=== PATIENT | female | born 1950 | race Caucasian/White ===

== ENCOUNTER → 2018-03-20 | Outpatient (CLI) | payer OTHER ==
[~2018-03-20] MED LIST: ACET325 PO; FAMO20 PO; SULTRIDS PO
[2018-03-20 12:27] LABS: Adenovirus F 40/41 Not Detected (NOT DETECT); Astrovirus Not Detected (NOT DETECT); Campylobacter Sp Not Detected (NOT DETECT); Cryptosporidium Not Detected (NOT DETECT); Cyclospora Cayetanensis Not Detected (NOT DETECT); E. Coli O157 Not Detected (NOT DETECT); Entamoeba Histolytica Not Detected (NOT DETECT); Enteroaggregative E. coli-EAEC Not Detected (NOT DETECT); Enteropathogenic E. coli-EPEC Not Detected (NOT DETECT); Enterotoxigenic E. coli-ETEC Not Detected (NOT DETECT); Giardia Lamblia Not Detected (NOT DETECT); Norovirus GI/GII Not Detected (NOT DETECT); Plesiomonas Shigelloides Not Detected (NOT DETECT); Rotavirus A Not Detected (NOT DETECT); Salmonella Sp Not Detected (NOT DETECT); Sapovirus Not Detected (NOT DETECT); Shiga Toxin-prod E. coli-STEC Not Detected (NOT DETECT); Shigella/Enteroin E. coli-EIEC Not Detected (NOT DETECT); Vibrio Cholerae Not Detected (NOT DETECT); Vibrio Sp Not Detected (NOT DETECT); Yersinia Enterocolitica Not Detected (NOT DETECT)
== END ==
LOC: LAB EV 12:22
PROVIDERS: Student in an Organized Health Care Education/Training Program
DX: R19.7 Diarrhea, unspecified (principal)
CPT/HCPCS: 87507

== ENCOUNTER → 2018-09-11 | Outpatient (CLI) | payer OTHER | END | disposition home or self-care (01) | LOC: LAB EV 16:47 → LAB SHORT 16:47 | DX: L02.211 Cutaneous abscess of abdominal wall (principal) | CPT/HCPCS: 87070; 87075; 87077; 87186; 87205 ==

== ENCOUNTER 2020-03-22 12:17 | Inpatient (IN) | payer OTHER ==
[~2020-03-22] VITALS: Ht 165.1 cm; Wt 104.5 kg
[2020-03-22 14:03] LABS: Source, Urine Clean Catch
[2020-03-22 14:06] LABS: Bilirubin, Urine Neg (Neg); Blood, Urine 5+ (Neg); Glucose Qualitative, Urine 2+ (Neg); Ketones, Urine Neg (Neg); Leukocyte Esterase, Urine 3+ (Neg); Nitrite, Urine Neg (Neg); Protein, Urine 1+ (Neg); Urobilinogen, Urine NORM (Normal)
[2020-03-22 14:12] LABS: Appearance, Urine Hazy (Clear); Color, Urine Yellow (P-Yellow)
[2020-03-22 14:13] LABS: Bacteria Many /hpf; Red Blood Cells, Urine TNTC /hpf (0-2); Squamous Epithelial Cells Mod /hpf (Few); White Blood Cells, Urine TNTC /hpf (0-5)
[2020-03-22 14:14] LABS: Renal Epithelial Few /hpf (0-Rare); Transitional Epithelial Cells Few /hpf (0-Rare)
[2020-03-22] MEDS ORDERED: TRULICITY1.5 MG/0.1 SC (14:26)
[2020-03-22] MEDS ORDERED: TOUJEO MAX300 UNIT/2 SC (14:27)
[2020-03-22] MEDS ORDERED: LISI20 PO (14:27)
[2020-03-22] MEDS ORDERED: HYDROCHLOROTH12.5 MG PO (14:27)
[2020-03-22] MEDS ORDERED: GABA300 PO (14:27)
[2020-03-22] MEDS ORDERED: Mirapex0.25 MG PO (14:27)
[2020-03-22] MEDS ORDERED: ATOR40TA PO (14:28)
[2020-03-22] MEDS ORDERED: METO25ER PO (14:28)
[2020-03-22] MEDS ORDERED: TRAM50 PO (14:28)
[2020-03-22] MEDS ORDERED: PANT40 PO (14:28)
[2020-03-22] MEDS ORDERED: GLIP5 PO (14:28)
--- NOTE | 2020-03-22 19:47 | NUR ---
SHIFT SUMMARY: PATIENT ADMIT FROM ED THIS SHIFT. PT A&O; CALM AND COOEPRATIVE WITH CARE. LACTIC 3.7-CH; FLUIDS RUNNING. HYPOTENSION RESOLVING; TEMP COMING DOWN; IV ABX IN ED. REPORT GIVEN TO ONCOMING RN.
--- NOTE | 2020-03-22 22:05 | NUR ---
CRITICAL LAB/INCREASED TEMP *LATE ENTRY* AROUND 1730 I WAS NOTIFIED PT HAD A CRITICAL LA @3.2 WHICH HAD TRENDED DOWN FROM 3.[address] FUENTES ORDERED REPEAT LAB TO BE DRAWN, I WILL MONITOR. TEMP 102.8, GAVE TYLENOL & TEMP DECREASED TO 100.6. PT DENIES CHILLS OR FEELING HOT, TURNED TEMP DOWN IN ROOM & REMOVED BLANKETS. WILL MONITOR PTS VITALS. CURRENTLY RECIEVING NS @150ML/HR.
[2020-03-22] MEDS ORDERED: FISH OIL 1,2001 EAC1 PO (22:27)
[2020-03-22] MEDS ORDERED: ASPIR 8181 M1 PO (22:28)
[2020-03-22] MEDS ORDERED: VITAMIN D31000 UNI1 PO (22:30)
[2020-03-22] MEDS ORDERED: MELATONIN 5 MG1 EACH PO (22:32)
--- NOTE | 2020-03-23 04:33 | NUR ---
BLOOD CULTURE AT 0255 I WAS NOTIFIED PT HAD GRAM +BACILLI IN BOTH BLOOD CULTURES. PT IS RECIEVING ROCEPHIN. ASKED PHARMACY IF PT IS COVERED W/THIS, THEY STATED POSSIBLY. NOTIFIED DR FARMER & NO NEW ORDERS WERE GIVEN. [facility] PT.
[2020-03-23 05:09] LABS: BASOPHILS ABSOLUTE AUTO 0.08 K/mm3 (0.00-0.23); BASOPHILS PERCENT AUTO 0 % (0-2); EOSINOPHILS ABSOLUTE AUTO 0.02 K/mm3 (0.00-0.68); EOSINOPHILS PERCENT AUTO 0 % (0-6); Hematocrit 34.5 % (33.0-51.0); Hemoglobin 10.8 g/dL (11.5-16.0); IMMATURE GRAN ABSOLUTE AUTO 0.53 K/mm3 (0.00-0.10); IMMATURE GRAN PERCENT AUTO 2 % (0-1); LYMPHOCYTES ABSOLUTE AUTO 2.68 K/mm3 (0.84-5.20); LYMPHOCYTES PERCENT AUTO 9 % (21-46); MONOCYTES ABSOLUTE AUTO 0.99 K/mm3 (0.16-1.47); MONOCYTES PERCENT AUTO 3 % (4-13); Mean Corpuscular HGB 29.6 pg (26.0-34.0); Mean Corpuscular HGB Conc 31.3 g/dL (31.5-36.5); NEUTROPHILS ABSOLUTE AUTO 26.69 K/mm3 (1.96-9.15); NEUTROPHILS PERCENT AUTO 86 % (41-73); Platelet Count 171 K/mm3 (150-400); RDW Coefficient Variation 13.2 % (11.7-14.2); RDW Standard Deviation 45.6 fL (35.1-46.3); Red Blood Cell Count 3.65 M/mm3 (3.80-5.20); White Blood Cell Count 30.99 K/mm3 (4.00-11.30)
[2020-03-23 05:12] LABS: Mean Corpuscular Volume 95 fL (80-100)
[2020-03-23 05:37] LABS: Albumin, Blood 2.7 g/dL (3.4-5.0); Albumin/Globulin Ratio 0.8 (0.8-1.8); Bilirubin, Total 0.4 mg/dL (0.1-1.0); Calcium, Blood 7.9 mg/dL (8.5-10.1); Creatinine, Blood 2.69 mg/dL (0.40-1.00); Globulin, Blood 3.6 g/dL (2.2-4.0); Phosphorus, Blood 2.2 mg/dL (2.5-4.9); Potassium, Blood 4.4 mmol/L (3.5-5.5); Total Protein, Blood 6.3 g/dL (6.4-8.2)
[2020-03-23 05:59] LABS: Magnesium, Blood 1.1 mg/dL (1.6-2.4)
--- NOTE | 2020-03-23 06:25 | NUR ---
SHIFT SUMMARY AOX4. HAD 102.8 TEMP LAST NIGHT, GAVE 1000MG TYLENOL PER ORDERS, TEMP DECREASED TO 100.6 & NOW PT IS AFEBRILE. REST OF VSS. TELE NSR c 1ST DEGREE HB @89. PT WAS ON 3L 02 @BEGINNING OF SHIFT, ABLE TO TITRATE DOWN TO 1L- PT STATES SHE'S NORMALLY ON RA. E/U RESPIRATIONS. SPO2 >90%. 7-9/10 L FLANK PAIN, MEDICATED 1X W/50MG TRAMADOL, PT REPORTED NO RELIEF-GAVE HEATING PAD THIS AM AFTER NO FURTHER FEVER. LACTIC ACID CRITICAL @2.5, PT RECIEVING NS @100ML/HR. NOTIFIED @0558 MAGNESIUM IS CRITICAL @1.1, MARLENY ORDERED 2GM IV MAG. +BLOOD CULTURES IN BOTH BLOOD SAMPLES, GRAM - BACILLI, NOTIFIED DR LEMOS & NO NEW ORDERS PLACED. PT UP 1 ASSIST TO BSC. WCTM PT. CALL LIGHT IN REACH.
--- NOTE | 2020-03-23 19:40 | NUR ---
SHIFT SUMMARY: PT A&O; ANXIOUS;COOPERATIVE WITH CARE. MEDICATED FOR R FLANK PAIN PER EMAR. RED-TINGED URINE; AWAITING STENT PLACEMENT (DR ALVAREZ). IV ABX & SEPSIS FLUIDS CONTINUING. REPORT GIVEN TO ONCOMING RN.
--- NOTE | 2020-03-23 22:48 | NUR ---
PHYSICIAN COMMUNICATION *LATE ENTRY* AT SHIFT CHANGE AROUND 1900 DR ALVAREZ INFOMRED ME THIS PT WOULD BE GOING TO CARBURETOR MECHANIC FOR NEPHROSTOMY PLACEMENT. AT 1925 CARBURETOR MECHANIC CAME TO FLOOR & TOOK PT FOR PROCEDURE.
--- NOTE | 2020-03-23 22:52 | NUR ---
POST PROCEDURE *LATE ENTRY* PT RETURNED FROM BOOTH MANAGER AROUND 2029. NEPHROSTOMY PLACED L LOWER BACK. DRESSING IS C/D/I, NO OUTPUT @THIS TIME-WILL MONITOR & PERFORM POST OP VITALS.
--- NOTE | 2020-03-23 22:56 | NUR ---
HEMATURIA PT HAS VOIDED DARK BLOODY RED URINE W/MULTIPLE CLOTS 2X, EQUALING 500ML, SINCE COMING BACK FROM NEPHROSTOMY PLACEMENT. VITALS STABLE-MILD TEMP, MEDICATED W/TYLENOL. WCTM.
--- NOTE | 2020-03-24 05:26 | NUR ---
SHIFT SUMMARY AOX4. HAD NEPHROSTOMY PLACED LAST NIGHT L LOWER BACK, ONLY SMALL AMOUNT BRYSON RED BLOODY DRAINAGE IN BAG. HAS VOIDED DARK RED/BLOODY URINE 4X SINCE NEPHROSTOMY PLACED. THE 1ST 2 TIMES PT VOIDED SHE HAD MANY SMALL CLOTS, NONE NOTICED W/LAST BLOODY URINATION. POST OP VITALS BEING DONE, HAD 100.3 TEMP GAVE TYLENOL, TEMP DECREASED TO 99.4. THIS AM PT IS AFEBRILE, REPORTING CHILLS & SHAKING. TELE [facility] 1ST DEGREE HB @105. CBG @ WAS 221, PROVIDED COVERAGE PER ORDERS. REPORTS 10 PAIN c HEADACHE & L FLANK PAIN, MEDICATED W/TYLENOL. CALL LIGHT IN REACH. WCTM.
[2020-03-24 05:56] LABS: BASOPHILS ABSOLUTE AUTO 0.09 K/mm3 (0.00-0.23); BASOPHILS PERCENT AUTO 0 % (0-2); EOSINOPHILS ABSOLUTE AUTO 0.14 K/mm3 (0.00-0.68); EOSINOPHILS PERCENT AUTO 1 % (0-6); Hematocrit 34.6 % (33.0-51.0); Hemoglobin 10.9 g/dL (11.5-16.0); IMMATURE GRAN ABSOLUTE AUTO 0.39 K/mm3 (0.00-0.10); IMMATURE GRAN PERCENT AUTO 2 % (0-1); LYMPHOCYTES ABSOLUTE AUTO 2.51 K/mm3 (0.84-5.20); LYMPHOCYTES PERCENT AUTO 10 % (21-46); MONOCYTES ABSOLUTE AUTO 1.11 K/mm3 (0.16-1.47); MONOCYTES PERCENT AUTO 5 % (4-13); Mean Corpuscular HGB Conc 31.5 g/dL (31.5-36.5); Mean Corpuscular Volume 92 fL (80-100); Mean Platelet Volume 12.4 fL (9.1-12.4); NEUTROPHILS ABSOLUTE AUTO 20.52 K/mm3 (1.96-9.15); NEUTROPHILS PERCENT AUTO 83 % (41-73); Platelet Count 143 K/mm3 (150-400); RDW Coefficient Variation 13.5 % (11.7-14.2); RDW Standard Deviation 45.7 fL (35.1-46.3); Red Blood Cell Count 3.76 M/mm3 (3.80-5.20); White Blood Cell Count 24.76 K/mm3 (4.00-11.30)
[2020-03-24 06:04] LABS: Albumin, Blood 2.5 g/dL (3.4-5.0); Anion Gap 7 mmol/L (6-16); Blood Urea Nitrogen 30 mg/dL (8-24); Bun/Creatinine Ratio 11.7 (12.0-20.0); CO2, Blood 22 mmol/L (21-32); Calcium, Blood 7.8 mg/dL (8.5-10.1); Chloride, Blood 110 mmol/L (98-108); Creatinine, Blood 2.57 mg/dL (0.40-1.00); Glomerular Filtration Rate 20 (60-); Glucose, Blood 189 mg/dL (70-99); Phosphorus, Blood 1.3 mg/dL (2.5-4.9); Potassium, Blood 4.3 mmol/L (3.5-5.5); Sodium, Blood 139 mmol/L (136-145)
[2020-03-24] MEDS ORDERED: FERSU300 PO (10:20)
[2020-03-24] MEDS ORDERED: LISINOPRIL-HCT1 EACH PO (10:21)
[2020-03-24] MEDS ORDERED: TOUJEO SOL300 UNIT/2 SC (10:22)
--- NOTE | 2020-03-24 19:39 | NUR ---
SHIFT SUMMARY PT URINE AND NEPHROSTOMY URINE IMPROVING IN COLOR THE DAY PROGRESSED. PT REPORTS NO PAIN UNLESS SHE BUMPS WHERE TUBE IS INSERTED. INDEPENDENT TO BSC AND CHAIR AND THEN BACK TO BED AGAIN.
[2020-03-25 05:21] LABS: Hematocrit 32.6 % (33.0-51.0); Hemoglobin 10.6 g/dL (11.5-16.0)
[2020-03-25 05:45] LABS: Albumin, Blood 2.5 g/dL (3.4-5.0); Anion Gap 6 mmol/L (6-16); Blood Urea Nitrogen 28 mg/dL (8-24); Bun/Creatinine Ratio 12.3 (12.0-20.0); CO2, Blood 24 mmol/L (21-32); Calcium, Blood 8.2 mg/dL (8.5-10.1); Chloride, Blood 109 mmol/L (98-108); Creatinine, Blood 2.28 mg/dL (0.40-1.00); Glomerular Filtration Rate 22 (60-); Glucose, Blood 155 mg/dL (70-99); Magnesium, Blood 1.6 mg/dL (1.6-2.4); Phosphorus, Blood 2.4 mg/dL (2.5-4.9); Potassium, Blood 4.1 mmol/L (3.5-5.5); Sodium, Blood 139 mmol/L (136-145)
--- NOTE | 2020-03-25 07:49 | NUR ---
SHIFT SUMMARY AOX4. VSS. TELE NSR @77. DENIES N/V OR DYSPNEA. REPORTED MILD HEADACHE, GAVE TYLENOL & PT STATED RELIEF. PT DENIED ANY FLANK PAIN LAST NIGHT. NEPHROSTOMY ON L LOWER BACK IS DRAINING CLEAR LIGHT CRANBERRY COLOR DRAINAGE & WHEN PT VOIDED IT WAS CLEAR YELLOW TONIGHT. THIS AM DR ATKINS DC'D FLUIDS & ORDERED IV 20MG IV LASIX OT. CALL LIGHT IN REACH.
--- NOTE | 2020-03-25 18:38 | NUR ---
SHIFT SUMMARY PT INDEPENDENT IN ROOM. URINE HAS CLEARED UP IN NEPHROSTOMY BAG AND WHAT IS URINATED THE DAY HAS PROGRESSED. IN CHAIR MOST OF DAY. DID NAP FOR A SHORT TIME THIS AFTERNOON. NO FEVERS.
--- NOTE | 2020-03-26 03:27 | NUR ---
SHIFT SUMMARY: PT IS ALERT AND ORIENTED. PT IS CALM AND COOPERATIVE WITH CARE. PT CALLS APPROPRIATELY. PT DENIES NAUSEA, VOMITING, AND SOB. PT IS INDPENDENT TO THE BSC. L. NEPHROSTOMY PATENT AND DRAINING DARK TEA COLORED URINE, 150 ML OUTPUT. PT SLEPT MUCH OF THE NIGHT WHEN NOT DISTURBED. NO ACUTE CHANGES OR COMPLICATIONS. WILL REPORT TO DAY NURSE.
[2020-03-26 08:39] LABS: BASOPHILS ABSOLUTE AUTO 0.05 K/mm3 (0.00-0.23); BASOPHILS PERCENT AUTO 1 % (0-2); EOSINOPHILS ABSOLUTE AUTO 0.27 K/mm3 (0.00-0.68); EOSINOPHILS PERCENT AUTO 3 % (0-6); Hematocrit 32.1 % (33.0-51.0); Hemoglobin 10.4 g/dL (11.5-16.0); IMMATURE GRAN ABSOLUTE AUTO 0.07 K/mm3 (0.00-0.10); IMMATURE GRAN PERCENT AUTO 1 % (0-1); LYMPHOCYTES ABSOLUTE AUTO 1.73 K/mm3 (0.84-5.20); LYMPHOCYTES PERCENT AUTO 17 % (21-46); MONOCYTES ABSOLUTE AUTO 1.21 K/mm3 (0.16-1.47); MONOCYTES PERCENT AUTO 12 % (4-13); Mean Corpuscular HGB 29.2 pg (26.0-34.0); Mean Corpuscular HGB Conc 32.4 g/dL (31.5-36.5); Mean Corpuscular Volume 90 fL (80-100); Mean Platelet Volume 12.4 fL (9.1-12.4); NEUTROPHILS ABSOLUTE AUTO 6.95 K/mm3 (1.96-9.15); NEUTROPHILS PERCENT AUTO 68 % (41-73); Platelet Count 161 K/mm3 (150-400); RDW Coefficient Variation 13.5 % (11.7-14.2); Red Blood Cell Count 3.56 M/mm3 (3.80-5.20); White Blood Cell Count 10.28 K/mm3 (4.00-11.30)
[2020-03-26 09:01] LABS: Albumin, Blood 2.5 g/dL (3.4-5.0); Anion Gap 7 mmol/L (6-16); Blood Urea Nitrogen 28 mg/dL (8-24); Bun/Creatinine Ratio 14.4 (12.0-20.0); CO2, Blood 26 mmol/L (21-32); Chloride, Blood 104 mmol/L (98-108); Creatinine, Blood 1.94 mg/dL (0.40-1.00); Glomerular Filtration Rate 27 (60-); Glucose, Blood 123 mg/dL (70-99); Phosphorus, Blood 2.9 mg/dL (2.5-4.9); Potassium, Blood 3.7 mmol/L (3.5-5.5); Sodium, Blood 137 mmol/L (136-145)
--- NOTE | 2020-03-26 16:58 | NUR ---
SHIFT SUMMARY PATIENT IS PLEASANT, ALERT AND ORIENTED. NO ACUTE CONCERNS. SHE AHS BEEN INDEPENDENT IN THE ROOM. SHE DID HAVE A SHOWER TODAY. REQUIRES NO ACUTE CONCERNS.
[2020-03-27 05:30] LABS: BASOPHILS ABSOLUTE AUTO 0.06 K/mm3 (0.00-0.23); BASOPHILS PERCENT AUTO 1 % (0-2); EOSINOPHILS ABSOLUTE AUTO 0.22 K/mm3 (0.00-0.68); EOSINOPHILS PERCENT AUTO 2 % (0-6); Hematocrit 32.3 % (33.0-51.0); Hemoglobin 10.4 g/dL (11.5-16.0); IMMATURE GRAN ABSOLUTE AUTO 0.09 K/mm3 (0.00-0.10); IMMATURE GRAN PERCENT AUTO 1 % (0-1); LYMPHOCYTES ABSOLUTE AUTO 2.47 K/mm3 (0.84-5.20); LYMPHOCYTES PERCENT AUTO 20 % (21-46); MONOCYTES ABSOLUTE AUTO 1.64 K/mm3 (0.16-1.47); MONOCYTES PERCENT AUTO 13 % (4-13); Mean Corpuscular HGB 29.1 pg (26.0-34.0); Mean Corpuscular HGB Conc 32.2 g/dL (31.5-36.5); Mean Corpuscular Volume 91 fL (80-100); Mean Platelet Volume 12.3 fL (9.1-12.4); NEUTROPHILS ABSOLUTE AUTO 7.83 K/mm3 (1.96-9.15); NEUTROPHILS PERCENT AUTO 64 % (41-73); Platelet Count 186 K/mm3 (150-400); RDW Coefficient Variation 13.5 % (11.7-14.2); Red Blood Cell Count 3.57 M/mm3 (3.80-5.20); White Blood Cell Count 12.31 K/mm3 (4.00-11.30)
[2020-03-27 06:00] LABS: Albumin, Blood 2.5 g/dL (3.4-5.0); Anion Gap 7 mmol/L (6-16); Blood Urea Nitrogen 33 mg/dL (8-24); Bun/Creatinine Ratio 16.5 (12.0-20.0); CO2, Blood 26 mmol/L (21-32); Calcium, Blood 8.9 mg/dL (8.5-10.1); Chloride, Blood 105 mmol/L (98-108); Glomerular Filtration Rate 26 (60-); Glucose, Blood 176 mg/dL (70-99); Magnesium, Blood 1.4 mg/dL (1.6-2.4); Phosphorus, Blood 3.1 mg/dL (2.5-4.9); Potassium, Blood 3.9 mmol/L (3.5-5.5); Sodium, Blood 138 mmol/L (136-145)
--- NOTE | 2020-03-27 06:12 | NUR ---
HEAD TELLER SUMMARY APPEARED TO SLEEP WELL MOST OF THE NIGHT. PLEASANT AND COOPERATIVE WITH CARE. USES CALL LIGHT APPROPRIATELY. NO SIGNS OF ACUTE DISTRESS. DENIES PAIN OR DISCOMFORT AT THIS TIME. BED IN LOWEST POSITON WITH CALL LIGHT IN REACH. WILL CONTINUE TO MONTIOR AND REPORT TO ONCOMING RN.
--- NOTE | 2020-03-27 08:08 | NUR ---
SPOKE WITH DR. ATKINS ABOUT PATIENT'S IV STATUS. SPOKE WITH DR. LLANOS ABOUT PATIENT'S IV STATUS. THE PATIENT IS NOT ABLE TO GET ANOTHER IV. DR. ATKINS ORDERED SLOW MAG. WE DO NOT HAVE SLOW MAG ANYMORE AVAILABLE.
--- NOTE | 2020-03-27 18:16 | NUR ---
shift summary patient is pleasant, alert and oriented, independent in the room. iv access is finicky and we have discontinued the iv medications at this time. she has been pleasant, prefers to have her rest. she is a potential for discahrge tomorrow if her wbc trends down.
[2020-03-28 05:44] LABS: BASOPHILS ABSOLUTE AUTO 0.09 K/mm3 (0.00-0.23); BASOPHILS PERCENT AUTO 1 % (0-2); EOSINOPHILS ABSOLUTE AUTO 0.35 K/mm3 (0.00-0.68); EOSINOPHILS PERCENT AUTO 2 % (0-6); Hematocrit 39.3 % (33.0-51.0); IMMATURE GRAN PERCENT AUTO 1 % (0-1); LYMPHOCYTES ABSOLUTE AUTO 4.49 K/mm3 (0.84-5.20); LYMPHOCYTES PERCENT AUTO 27 % (21-46); MONOCYTES ABSOLUTE AUTO 1.82 K/mm3 (0.16-1.47); MONOCYTES PERCENT AUTO 11 % (4-13); Mean Corpuscular HGB Conc 33.1 g/dL (31.5-36.5); Mean Corpuscular Volume 88 fL (80-100); NEUTROPHILS ABSOLUTE AUTO 9.84 K/mm3 (1.96-9.15); NEUTROPHILS PERCENT AUTO 59 % (41-73); RDW Coefficient Variation 13.4 % (11.7-14.2); RDW Standard Deviation 43.7 fL (35.1-46.3); Red Blood Cell Count 4.48 M/mm3 (3.80-5.20); White Blood Cell Count 16.79 K/mm3 (4.00-11.30)
[2020-03-28 05:47] LABS: Mean Platelet Volume 11.7 fL (9.1-12.4); Platelet Count 236 K/mm3 (150-400)
[2020-03-28 06:05] LABS: Anion Gap 11 mmol/L (6-16); Blood Urea Nitrogen 32 mg/dL (8-24); Bun/Creatinine Ratio 17.3 (12.0-20.0); CO2, Blood 22 mmol/L (21-32); Calcium, Blood 9.4 mg/dL (8.5-10.1); Chloride, Blood 105 mmol/L (98-108); Creatinine, Blood 1.85 mg/dL (0.40-1.00); Glomerular Filtration Rate 29 (60-); Glucose, Blood 152 mg/dL (70-99); Magnesium, Blood 1.6 mg/dL (1.6-2.4); Phosphorus, Blood 3.5 mg/dL (2.5-4.9); Potassium, Blood 4.3 mmol/L (3.5-5.5); Sodium, Blood 138 mmol/L (136-145)
--- NOTE | 2020-03-28 06:19 | NUR ---
FIRST COAT OPERATOR SUMMARY PT A/O X4. INDEPENDENT IN ROOM. MEDICATED FOR PAIN TWICE THIS SHIFT. TEMP ELEVATED THIS AM AT 99.8 F VIA TEMPORAL. I RE-CHECKED AGAIN WITH ORAL WHICH WAS 98.5 F. SHE WAS MEDICATED WITH TYLENOL THIS MORNING FOR HEADACHE. PT FEELS COLD BUT SHE STATES SHE'S BEEN FEELING CHILLY EVER SINCE BEING THE THE HOSPITAL. BLANKET PROVIDED. WBC ARE MORE ELEVATED. PT SLEPT WELL. L FLANK SITE LOOKS C.D.I.
--- NOTE | 2020-03-28 11:18 | NUR ---
PT DOES NOT WANT TO SHOWER. OFFERED TO SET STUFF UP FOR HER TO GIVE HERSELF A BEDBATH, PT REFUSED THIS WELL.
--- NOTE | 2020-03-28 18:58 | NUR ---
SHIFT SUMMARY NO ACUTE CONCERNS AT THIS TIME. DENIES ANY CHEST PAIN, SHORTNESS OF BREATH. NO PAIN AT THIS TIME. PLEASANT ALERT AND ORIENTED. INDEPENDENT IN THE ROOM.
--- NOTE | 2020-03-29 04:11 | NUR ---
PLANNER INTERN SUMMARY PT A/O X4. INDEPENDENT ROOM. MEDICATED FOR PAIN ONCE TONIGHT. DENIES NAUSEA, DIZZINIESS. SLEPT WELL TONIGHT. VSS. L FLANK NEPHROSTOMY SITE APPEARS C.D.I. NO ACUTE CHANGES.
[2020-03-29 05:18] LABS: BASOPHILS ABSOLUTE AUTO 0.07 K/mm3 (0.00-0.23); BASOPHILS PERCENT AUTO 1 % (0-2); EOSINOPHILS ABSOLUTE AUTO 0.51 K/mm3 (0.00-0.68); EOSINOPHILS PERCENT AUTO 3 % (0-6); Hematocrit 34.5 % (33.0-51.0); Hemoglobin 10.8 g/dL (11.5-16.0); IMMATURE GRAN ABSOLUTE AUTO 0.22 K/mm3 (0.00-0.10); IMMATURE GRAN PERCENT AUTO 1 % (0-1); LYMPHOCYTES ABSOLUTE AUTO 3.01 K/mm3 (0.84-5.20); LYMPHOCYTES PERCENT AUTO 20 % (21-46); MONOCYTES ABSOLUTE AUTO 1.47 K/mm3 (0.16-1.47); MONOCYTES PERCENT AUTO 10 % (4-13); Mean Corpuscular HGB 29.1 pg (26.0-34.0); Mean Corpuscular HGB Conc 31.3 g/dL (31.5-36.5); Mean Platelet Volume 11.5 fL (9.1-12.4); NEUTROPHILS ABSOLUTE AUTO 9.92 K/mm3 (1.96-9.15); NEUTROPHILS PERCENT AUTO 65 % (41-73); Platelet Count 272 K/mm3 (150-400); RDW Coefficient Variation 13.5 % (11.7-14.2); RDW Standard Deviation 45.9 fL (35.1-46.3); Red Blood Cell Count 3.71 M/mm3 (3.80-5.20)
[2020-03-29 05:19] LABS: Mean Corpuscular Volume 93 fL (80-100)
[2020-03-29 05:40] LABS: Albumin, Blood 2.7 g/dL (3.4-5.0); Anion Gap 8 mmol/L (6-16); Blood Urea Nitrogen 30 mg/dL (8-24); Bun/Creatinine Ratio 16.6 (12.0-20.0); CO2, Blood 27 mmol/L (21-32); Calcium, Blood 9.5 mg/dL (8.5-10.1); Chloride, Blood 105 mmol/L (98-108); Creatinine, Blood 1.81 mg/dL (0.40-1.00); Glomerular Filtration Rate 29 (60-); Glucose, Blood 151 mg/dL (70-99); Magnesium, Blood 1.6 mg/dL (1.6-2.4); Phosphorus, Blood 3.5 mg/dL (2.5-4.9); Potassium, Blood 3.9 mmol/L (3.5-5.5); Sodium, Blood 140 mmol/L (136-145)
[2020-03-29] MEDS ORDERED: ACET325 PO (15:51)
[2020-03-29] MEDS ORDERED: CIPR500 PO (15:52)
[2020-03-29] MEDS ORDERED: VISBIOME PROBIOTIC PO (15:53)
--- NOTE | 2020-03-29 16:43 | NUR ---
PATIENT D/C'D TO HOME. RX MEDICATIONS FAXED TO [facility]. DC INSTRUCTIONS AND EDUCATION DISCUSSED WITH PATIENT AND COPY PROVIDED. PATIENT DENIES ANY FURTHER QUESTIONS OR CONCERNS.
== END 2020-03-29 16:38 | disposition home or self-care (01) | DRG 872 ==
LOC: ER 12:17 → MEDS 16:10 → ER 17:17 → MEDS 17:38
PROVIDERS: Emergency Medicine; Internal Medicine Nephrology; Student in an Organized Health Care Education/Training Program; ADMIT Hospitalist
PROC: 0T9430Z Drainage of Left Kidney Pelvis with Drainage Device, Percutaneous Approach (ICD-10-PCS; principal; 2020-03-23)
DX: A41.51 Sepsis due to Escherichia coli [E. coli] (principal); N12 Tubulo-interstitial nephritis, not specified as acute or chronic; N13.6 Pyonephrosis; N17.9 Acute kidney failure, unspecified; N25.81 Secondary hyperparathyroidism of renal origin; R65.20 Severe sepsis without septic shock; E11.22 Type 2 diabetes mellitus with diabetic chronic kidney disease; N18.3 Chronic kidney disease, stage 3 (moderate); I12.9 Hypertensive chronic kidney disease with stage 1 through stage 4 chronic kidney disease, or unspecified chronic kidney disease; M54.5 Low back pain; E78.5 Hyperlipidemia, unspecified; E66.9 Obesity, unspecified; D63.1 Anemia in chronic kidney disease; E83.42 Hypomagnesemia; E88.09 Other disorders of plasma-protein metabolism, not elsewhere classified; E83.39 Other disorders of phosphorus metabolism; E11.42 Type 2 diabetes mellitus with diabetic polyneuropathy; K21.9 Gastro-esophageal reflux disease without esophagitis; K44.9 Diaphragmatic hernia without obstruction or gangrene; K57.30 Diverticulosis of large intestine without perforation or abscess without bleeding; G89.4 Chronic pain syndrome; G25.81 Restless legs syndrome; E86.9 Volume depletion, unspecified; R31.9 Hematuria, unspecified; R80.9 Proteinuria, unspecified; Z79.82 Long term (current) use of aspirin; Z79.84 Long term (current) use of oral hypoglycemic drugs; Z79.4 Long term (current) use of insulin; Z68.36 Body mass index [BMI] 36.0-36.9, adult
CPT/HCPCS: 36415; 50432; 71046; 74176; 76770; 76856; 76937; 80053; 80069; 81001; 82947; 83605; 83735; 84100; 85014; 85018; 85025; 87040; 87077; 87086; 87106; 87186; 93005; 93010; 96365; 96375; 97161; 97165; 99152; 99153; 99285-25; A9270; A9270-GY; C1729; C1769; J0696; J1940; J1956; J2250; J2405; J3010; J3475; J7030; J7040; J7060; Q9967

== ENCOUNTER → 2020-07-03 | Outpatient (CLI) | payer OTHER ==
[~2020-07-03] MED LIST changes: +ASPIR 8181 M1 PO; +ATOR40TA PO; +CIPR500 PO; +FERSU300 PO; +FISH OIL 1,2001 EAC1 PO; +GABA300 PO; +GLIP5 PO; +HYDROCHLOROTH12.5 MG PO; +LISI20 PO; +LISINOPRIL-HCT1 EACH PO; +MELATONIN 5 MG1 EACH PO; +METO25ER PO; +Mirapex0.25 MG PO; +PANT40 PO; +TOUJEO MAX300 UNIT/2 SC; +TOUJEO SOL300 UNIT/2 SC; +TRAM50 PO; +TRULICITY1.5 MG/0.1 SC; +VISBIOME PROBIOTIC PO; +VITAMIN D31000 UNI1 PO
[2020-07-04 12:35] LABS: Stool Occult Bld Immuno 1 Positive (NEGATIVE)
== END | disposition home or self-care (01) ==
LOC: LAB SHORT 06:13 → LAB EV 06:13
PROVIDERS: Student in an Organized Health Care Education/Training Program
DX: Z12.11 Encounter for screening for malignant neoplasm of colon (principal)
CPT/HCPCS: G0328

== ENCOUNTER → 2021-10-20 | Outpatient (CLI) | payer OTHER ==
[2021-10-22 10:44] LABS: Stool Occult Bld Immuno 1 Positive (NEGATIVE)
== END | disposition home or self-care (01) ==
LOC: LAB SHORT 17:05 → LAB EV 17:05
PROVIDERS: Internal Medicine Endocrinology, Diabetes & Metabolism
DX: K92.1 Melena (principal)
CPT/HCPCS: 82274

== ENCOUNTER 2022-06-26 13:25 | Emergency (ER) | payer OTHER | END 2022-06-26 17:29 | disposition home or self-care (01) | DX: S01.81XA Laceration without foreign body of other part of head, initial encounter (principal); W01.0XXA Fall on same level from slipping, tripping and stumbling without subsequent striking against object, initial encounter; E11.9 Type 2 diabetes mellitus without complications; I10 Essential (primary) hypertension; Z79.899 Other long term (current) drug therapy; Z87.891 Personal history of nicotine dependence ==

== ENCOUNTER 2022-07-04 11:24 | Emergency (ER) | payer OTHER ==
[~2022-07-04] VITALS: Ht 165.1 cm; Wt 68.0 kg
== END 2022-07-04 13:08 | disposition home or self-care (01) ==
LOC: ER 11:24
DX: Z48.02 Encounter for removal of sutures (principal); E11.9 Type 2 diabetes mellitus without complications; I10 Essential (primary) hypertension; Z79.4 Long term (current) use of insulin; Z79.899 Other long term (current) drug therapy; Z87.891 Personal history of nicotine dependence
CPT/HCPCS: 99281

== ENCOUNTER → 2022-12-28 | Outpatient (CLI) | payer OTHER ==
[2022-12-28 19:23] LABS: Protein, Urine Quantitative 6.7 mg/dL (0.0-11.9); Sodium, Urine 122 mmol/L (20-110)
[2022-12-28 19:25] LABS: Microalbumin, Urine Quant. <5.000 mg/L (0.000-20.000)
[2022-12-28 19:26] LABS: Calcium, Urine 6.8 mg/dL (< 17.5); Calcium, Urine Calculation 54.4 mg/24hrs (42.0-353.0)
== END | disposition home or self-care (01) ==
LOC: LAB SHORT 16:06 → LAB 16:06 → LAB FUT 12-26 17:10
PROVIDERS: Internal Medicine Nephrology
DX: N18.30 Chronic kidney disease, stage 3 unspecified (principal); D63.1 Anemia in chronic kidney disease; N25.81 Secondary hyperparathyroidism of renal origin; E55.9 Vitamin D deficiency, unspecified; R76.9 Abnormal immunological finding in serum, unspecified; R94.5 Abnormal results of liver function studies; R94.6 Abnormal results of thyroid function studies
CPT/HCPCS: 81050; 82043; 82340; 82570; 84156; 84300

== ENCOUNTER 2024-11-06 09:21 | Day surgery (SDC) | payer OTHER ==
[~2024-11-06] VITALS: Ht 165.1 cm; Wt 101.6 kg
[~2024-11-06 09:21] MED LIST changes: +Balanced Salt Epinephrine Irrigation Solution 500 mL IR SCH; +Diazepam 5 MG Tab PO PRN; +Diazepam 5 MG Tab PO SCH; +Lidocaine HCl/Pf 1% 5 ML VIAL XX SCH; +Moxifloxacin HCL 0.5 MG/0.1 ML 0.4MLSYR RIGHTEYE SCH; +Ondansetron 4 MG SoluTab MM PRN; +PHENYLEPHRINE\\TROPICAMIDE\\TETRACAINE OPHTHALMIC DILATING SOLN RIGHTEYE PRN; +Povidone-Iodine 450 DROP/30 ML Solution ONE; +Povidone-Iodine 450 DROP/30 ML Solution RIGHTEYE SCH; +Tetracaine HCl/Pf 0.5% Opth Soln 4 ml ONE; +Triamcinolone Inj Susp 40 MG / ML 1ML Vial INJ SCH; +Triamcinolone Inj Susp 40 MG / ML 1ML Vial ONE; +diazePAM 2 MG,diazePAM 5 MG PO SCH
[2024-11-06] MEDS ORDERED: Diazepam 10 MG Tab ONE (10:20)
[2024-11-06] MEDS ORDERED: LISI20 (10:49)
[2024-11-06] MEDS ORDERED: Aspir 8181 MG PO (10:50)
[2024-11-06] MEDS ORDERED: MAGNESIUM OXID500 MG PO (10:50)
--- NOTE | 2024-11-06 11:14 | NUR ---
11/06/24 1114 Veronica Barriga VITAL SIGNS AT 1113 BP: 179/69 O2: 96 P: 68 BLOW-BY OXYGEN AT 10 LITERS. PATIENT ALERT, NO S/S OF DISTRESS.
[2024-11-06 11:33] VITALS: BP 165/69
== END 2024-11-06 11:47 | disposition home or self-care (01) ==
LOC: ORSCSDS 09:21
PROVIDERS: Ophthalmology
PROC: 08RJ3JZ Replacement of Right Lens with Synthetic Substitute, Percutaneous Approach (ICD-10-PCS; principal; 2024-11-06 11:00)
DX: E11.36 Type 2 diabetes mellitus with diabetic cataract (principal); H25.813 Combined forms of age-related cataract, bilateral; E11.22 Type 2 diabetes mellitus with diabetic chronic kidney disease; I12.9 Hypertensive chronic kidney disease with stage 1 through stage 4 chronic kidney disease, or unspecified chronic kidney disease; N18.4 Chronic kidney disease, stage 4 (severe); E78.2 Mixed hyperlipidemia; E21.3 Hyperparathyroidism, unspecified; Z79.82 Long term (current) use of aspirin; Z79.85 Long-term (current) use of injectable non-insulin antidiabetic drugs; Z79.899 Other long term (current) drug therapy
CPT/HCPCS: 82947; A9270; J3301; V2632

== ENCOUNTER 2024-11-13 09:13 | Day surgery (SDC) | payer OTHER ==
[~2024-11-13] VITALS: Ht 165.1 cm; Wt 101.7 kg
[~2024-11-13 09:13] MED LIST changes: +Aspir 8181 MG PO; +LISI20; +MAGNESIUM OXID500 MG PO; +Moxifloxacin HCL 0.5 MG/0.1 ML 0.4MLSYR LEFTEYE SCH; -Moxifloxacin HCL 0.5 MG/0.1 ML 0.4MLSYR RIGHTEYE SCH; +PHENYLEPHRINE\\TROPICAMIDE\\TETRACAINE OPHTHALMIC DILATING SOLN LEFTEYE PRN; -PHENYLEPHRINE\\TROPICAMIDE\\TETRACAINE OPHTHALMIC DILATING SOLN RIGHTEYE PRN; +Povidone-Iodine 450 DROP/30 ML Solution LEFTEYE SCH; -Povidone-Iodine 450 DROP/30 ML Solution RIGHTEYE SCH; -diazePAM 2 MG,diazePAM 5 MG PO SCH
[2024-11-13] MEDS ORDERED: Diazepam 10 MG Tab ONE (10:02)
--- NOTE | 2024-11-13 10:38 | NUR ---
11/13/24 1038 Jorge Dallas ADMINISTERED AT 1022 PT REPORTS 0 ANXIETY. TETRACAINE ADMINISTERED AT 1022, PLEDGET PLACED AT 1023.
--- NOTE | 2024-11-13 11:08 | NUR ---
11/13/24 1108 Janel Aguayo 1101 BP 158/87 PULSE 66 O2 100% ON BLOW BY, WILL CONTINUE TO MONITOR
[2024-11-13 11:36] VITALS: BP 147/78
== END 2024-11-13 11:35 | disposition home or self-care (01) ==
LOC: ORSCSDS 09:13
PROVIDERS: Ophthalmology
PROC: 08RK3JZ Replacement of Left Lens with Synthetic Substitute, Percutaneous Approach (ICD-10-PCS; principal; 2024-11-13 11:00)
DX: E11.36 Type 2 diabetes mellitus with diabetic cataract (principal); H25.812 Combined forms of age-related cataract, left eye; Z96.1 Presence of intraocular lens; H35.341 Macular cyst, hole, or pseudohole, right eye; E78.00 Pure hypercholesterolemia, unspecified; E11.22 Type 2 diabetes mellitus with diabetic chronic kidney disease; I12.9 Hypertensive chronic kidney disease with stage 1 through stage 4 chronic kidney disease, or unspecified chronic kidney disease; N18.4 Chronic kidney disease, stage 4 (severe); Z87.891 Personal history of nicotine dependence; E21.3 Hyperparathyroidism, unspecified; Z79.85 Long-term (current) use of injectable non-insulin antidiabetic drugs; Z79.899 Other long term (current) drug therapy
CPT/HCPCS: 82947; A9270; J3301; V2632